=== PATIENT | female | born 1945 | race Caucasian/White ===

== ENCOUNTER → 2017-01-06 | Outpatient (CLI) | payer MEDICARE ==
[~2017-01-06] MED LIST: ADVAIR INHALER INH; AMOXICILLIN500 M2 PO; AUGMENTIN 875 M1 TAB PO; DIABETA5 MG PO; FLUCONAZOLE100 MG PO; GLYBURIDE5 MG PO; LANTUS100 U/ML SC; LISINOPRIL10 M1 PO; LISINOPRIL5 MG PO; METFORMIN500 MG PO; NEURONTIN100 MG PO; NEURONTIN300 MG PO; PROZAC40 M1 PO; ROBITUSSIN AC 110 ML PO; VICTOZA 3-PAK6 MG/ML SC; VIGAMOX 0.5% 3 M3 ML OPH; VITAMIN D5000 I3 PO; ZYRTEC10 M3 PO
== END | disposition home or self-care (01) ==
LOC: MRI 12-30 14:00
DX: M48.06 Spinal stenosis, lumbar region (principal); M47.896 Other spondylosis, lumbar region; G89.29 Other chronic pain; Z96.641 Presence of right artificial hip joint

== ENCOUNTER 2017-09-07 13:40 | Emergency (ER) | payer MEDICARE ==
[~2017-09-07] VITALS: Ht 157.4 cm; Wt 81.6 kg
--- NOTE | ~2017-09-07 | EKG ---
[place], [place] ELECTROCARDIOGRAM REPORT NAME: NIEVES MONTOYA UNIT #: [id number] ROOM: DOCTOR: ABHINAV DUFFY,CHENTE BIRTHDATE: [birth year] DOS: 09/07/2017 TIME: 1407 hours. IMPRESSION: 1. Sinus rhythm. 2. Normal QT intervals. CHENTE LA MD CM:EKGRPT:ELECTROCARDIOGRAM REPORT [id number] CHENTE LA MD
[2017-09-07 13:50] VITALS: BP 145/90
[2017-09-07 14:13] LABS: BASO # 0.1 10*3/uL (0.0-0.1); BASO % 0.9 % (0.0-1.0); EOS # 0.3 10*3/uL (0.0-0.4); EOS % 3.2 % (1.0-4.0); HEMATOCRIT 39.1 % (37.0-47.0); HEMOGLOBIN 13.6 g/dl (12.0-16.0); LYMPH # 2.6 10*3/uL (1.3-4.4); LYMPH % 28.3 % (27.0-41.0); MEAN CELL VOLUME 89.5 fl (81.0-99.0); MEAN CORPUSCULAR HGB 31.1 pg (27.0-31.0); MEAN CORPUSCULAR HGB CONC 34.8 g/dl (33.0-37.0); MEAN PLATELET VOLUME 11.5 fl (9.6-12.3); MONO # 0.8 10*3/uL (0.1-1.0); MONO % 8.9 % (3.0-9.0); NEUT # 5.4 10*3/uL (2.3-7.9); NEUT % 58.5 % (47.0-73.0); PLATELET COUNT AUTOMATED 300 10*3/uL (130-400); RED BLOOD COUNT 4.37 10*6/uL (4.10-5.10); RED CELL DISTRI WIDTH 13.1 % (0-14.5); WHITE BLOOD COUNT 9.3 10*3/uL (4.8-10.8)
[2017-09-07 14:21] LABS: ACT PARTIAL THROMBO TIME 22.8 SECONDS (20.8-31.5); INTERNATIONAL NORM RATIO 1.1 (2.0-3.5)
[2017-09-07 14:28] LABS: ALBUMIN 3.5 gm/dl (3.1-4.5); ALKALINE PHOSPHATASE 115 U/L (45-117); BUN 7 mg/dl (7-24); CHLORIDE 104 mmol/L (98-107); CREATININE 0.87 mg/dL (0.55-1.02); LIPASE 191 U/L (73-393); POTASSIUM 4.6 mmol/L (3.5-5.1); SGOT/AST 19 IU/L (3-35); SGPT/ALT 29 U/L (12-78); SODIUM 139 mmol/L (136-145)
[2017-09-07 14:29] LABS: TROPONIN I < 0.015 ng/ml (<0.045)
[2017-09-07] MEDS ORDERED: PREDNISONE10 MG PO (17:45)
== END 2017-09-07 17:54 | disposition home or self-care (01) ==
LOC: ED 13:40
PROVIDERS: Emergency Medicine
DX: G51.0 Bell's palsy (principal); Z90.49 Acquired absence of other specified parts of digestive tract; Z98.51 Tubal ligation status; Z79.4 Long term (current) use of insulin; Z79.899 Other long term (current) drug therapy

== ENCOUNTER → 2018-06-02 | Outpatient (CLI) | payer MEDICARE ==
[~2018-06-02] MED LIST changes: +PREDNISONE10 MG PO
== END | disposition home or self-care (01) ==
LOC: MRI 10:59
DX: G20 Parkinson's disease (principal)

== ENCOUNTER → 2019-08-01 | Outpatient (CLI) | payer MEDICARE | END | disposition home or self-care (01) | LOC: RAD 10:57 | DX: M85.88 Other specified disorders of bone density and structure, other site (principal); N95.0 Postmenopausal bleeding ==

== ENCOUNTER → 2019-11-15 | Outpatient (CLI) | payer MEDICARE | END | disposition home or self-care (01) | LOC: MAMMO 10:55 | DX: Z12.31 Encounter for screening mammogram for malignant neoplasm of breast (principal) ==

== ENCOUNTER → 2020-02-22 | Outpatient (CLI) | payer MEDICARE | END | disposition home or self-care (01) | LOC: US 13:30 | DX: R60.0 Localized edema (principal) ==

== ENCOUNTER → 2020-02-27 | Outpatient (CLI) | payer MEDICARE | END | disposition home or self-care (01) | LOC: RAD 11:38 | DX: M77.51 Other enthesopathy of right foot and ankle (principal) ==

== ENCOUNTER → 2020-03-04 | Outpatient (CLI) | payer MEDICARE | END | disposition home or self-care (01) | LOC: CARD 08:24 | DX: I05.9 Rheumatic mitral valve disease, unspecified (principal); E65 Localized adiposity; I35.8 Other nonrheumatic aortic valve disorders ==

== ENCOUNTER → 2021-02-26 | Outpatient (CLI) | payer MEDICARE | END | disposition home or self-care (01) | LOC: MAMMO 02-03 13:30 → RAD 02-03 14:00 | PROVIDERS: ATTEND Internal Medicine | DX: Z12.31 Encounter for screening mammogram for malignant neoplasm of breast (principal); M85.89 Other specified disorders of bone density and structure, multiple sites; Z78.0 Asymptomatic menopausal state ==

== ENCOUNTER → 2021-08-20 | Outpatient (CLI) | payer MEDICARE | END | disposition home or self-care (01) | LOC: RAD 15:48 | PROVIDERS: ATTEND General Practice | DX: M47.816 Spondylosis without myelopathy or radiculopathy, lumbar region (principal); M41.86 Other forms of scoliosis, lumbar region; M16.12 Unilateral primary osteoarthritis, left hip; M25.78 Osteophyte, vertebrae; I70.0 Atherosclerosis of aorta ==

== ENCOUNTER → 2023-02-18 | Outpatient (CLI) | payer MEDICARE | END | disposition home or self-care (01) | LOC: US 16:00 | PROVIDERS: ATTEND Internal Medicine | DX: I65.23 Occlusion and stenosis of bilateral carotid arteries (principal) ==

== ENCOUNTER → 2023-10-06 | Outpatient (CLI) | payer MEDICARE ==
[~2023-10-06] MED LIST changes: +AMOX-CLAV 875-1 EACH PO; +GABAPENTIN600 MG PO; +GLIPIZIDE10 M2 PO; +LANTUS SOL100 UNIT/1 SC; +METOPROLOL SUCC50 M1 PO; +OMEPRAZOLE MAGN20 MG PO; +REGLAN5 MG PO; +SIMVASTATIN10 MG PO; +TRADJENTA5 M1 PO; +ZESTRIL10 MG PO; +ZESTRIL5 MG PO
== END | disposition home or self-care (01) ==
LOC: RAD 10-05 01:17
PROVIDERS: ATTEND Internal Medicine Critical Care Medicine
DX: J18.8 Other pneumonia, unspecified organism (principal)

== ENCOUNTER 2023-12-21 12:24 | Emergency (ER) | payer MEDICARE ==
[~2023-12-21] VITALS: Ht 152.4 cm; Wt 71.7 kg
[2023-12-21 12:31] VITALS: BP 177/85
[2023-12-21 13:25] LABS: BASO % 0.3 % (0.0-1.0); EOS # 0.2 10*3/uL (0.0-0.4); EOS % 1.5 % (1.0-4.0); HEMATOCRIT 42.7 % (37.0-47.0); LYMPH # 1.6 10*3/uL (1.3-4.4); LYMPH % 11.3 % (27.0-41.0); MEAN CELL VOLUME 87.9 fl (81.0-99.0); MEAN CORPUSCULAR HGB CONC 34.2 g/dl (33.0-37.0); MEAN PLATELET VOLUME 11.8 fl (9.6-12.3); MONO # 1.4 10*3/uL (0.1-1.0); MONO % 9.9 % (3.0-9.0); NEUT # 11.1 10*3/uL (2.3-7.9); NEUT % 76.6 % (47.0-73.0); PLATELET COUNT AUTOMATED 268 10*3/uL (130-400); RED BLOOD COUNT 4.86 10*6/uL (4.10-5.10); RED CELL DISTRI WIDTH 13.6 % (0-14.5); WHITE BLOOD COUNT 14.5 10*3/uL (4.8-10.8)
[2023-12-21 13:36] LABS: ACT PARTIAL THROMBO TIME 26.6 SECONDS (20.0-32.1)
[2023-12-21 13:41] LABS: ALKALINE PHOSPHATASE 83 U/L (46-116); BUN 8 mg/dl (9-23); CHLORIDE 103 mmol/L (98-107); POTASSIUM 3.2 mmol/L (3.4-5.1); SGPT/ALT < 7 U/L (5-49); TOTAL PROTEIN 6.9 gm/dL (6.0-8.0)
[2023-12-21] MEDS ORDERED: MAGNESIUM OXIDE 400 MG TAB PO ONE (14:25)
[2023-12-21] MEDS ORDERED: methylPREDNISolone sod succ 125 MG VIAL IM ONE (14:25)
[2023-12-21] MEDS ORDERED: POTASSIUM CHLORIDE 20 MEQ TAB PO ONE (14:25)
[2023-12-21] MEDS ORDERED: AZITHROMYCIN 250 MG TAB PO ONE (14:25)
[2023-12-21] MEDS ORDERED: AVPAK AZITHROM250 M1 PO (14:28)
== END 2023-12-21 14:49 | disposition home or self-care (01) ==
LOC: ED 12:24
PROVIDERS: Nurse Practitioner Family
DX: J44.9 Chronic obstructive pulmonary disease, unspecified (principal); Z20.822 Contact with and (suspected) exposure to COVID-19; E87.6 Hypokalemia; E11.65 Type 2 diabetes mellitus with hyperglycemia; E83.42 Hypomagnesemia; F32.A Depression, unspecified; I10 Essential (primary) hypertension; K21.9 Gastro-esophageal reflux disease without esophagitis; E78.00 Pure hypercholesterolemia, unspecified; R10.2 Pelvic and perineal pain; Z90.49 Acquired absence of other specified parts of digestive tract; Z95.5 Presence of coronary angioplasty implant and graft; Z98.51 Tubal ligation status

== ENCOUNTER → 2024-04-18 | Outpatient (CLI) | payer MEDICARE ==
[~2024-04-18] MED LIST changes: +AVPAK AZITHROM250 M1 PO; +DHIVY 25-100 M1 EAC1 PO; +LEVOFLOXACIN500 MG PO; +Nizoral 2%15 GM T
[2024-04-18 13:33] LABS: BASO # 0.1 10*3/uL (0.0-0.1); BASO % 0.6 % (0.0-1.0); EOS # 0.4 10*3/uL (0.0-0.4); HEMATOCRIT 44.8 % (37.0-47.0); LYMPH # 2.2 10*3/uL (1.3-4.4); LYMPH % 17.6 % (27.0-41.0); MEAN CELL VOLUME 90.5 fl (81.0-99.0); MEAN CORPUSCULAR HGB 30.9 pg (27.0-31.0); MEAN CORPUSCULAR HGB CONC 34.2 g/dl (33.0-37.0); MEAN PLATELET VOLUME 11.4 fl (9.6-12.3); MONO # 1.1 10*3/uL (0.1-1.0); MONO % 9.1 % (3.0-9.0); NEUT # 8.7 10*3/uL (2.3-7.9); PLATELET COUNT AUTOMATED 258 10*3/uL (130-400); RED BLOOD COUNT 4.95 10*6/uL (4.10-5.10); RED CELL DISTRI WIDTH 13.4 % (0-14.5); WHITE BLOOD COUNT 12.6 10*3/uL (4.8-10.8)
[2024-04-18 14:10] LABS: VITAMIN D, 25-HYDROXY 32.4 ng/mL (30-100)
[2024-04-18 14:15] LABS: FREE T4 1.08 ng/dl (0.89-1.76); POTASSIUM 4.2 mmol/L (3.4-5.1); TOTAL PROTEIN 6.9 gm/dL (6.0-8.0)
== END | disposition home or self-care (01) ==
LOC: CARD 01:22 → LAB 01:22 → CARD 12:00
PROVIDERS: ATTEND Internal Medicine
DX: I08.0 Rheumatic disorders of both mitral and aortic valves (principal); I10 Essential (primary) hypertension; Z79.891 Long term (current) use of opiate analgesic; Z79.899 Other long term (current) drug therapy

== ENCOUNTER → 2024-05-31 | Outpatient (CLI) | payer MEDICARE | END | disposition home or self-care (01) | LOC: CT 00:37 | PROVIDERS: ATTEND Internal Medicine | DX: G51.8 Other disorders of facial nerve (principal); G93.89 Other specified disorders of brain ==

== ENCOUNTER → 2024-07-19 | Outpatient (CLI) | payer MEDICARE ==
[2024-07-19 15:24] LABS: POTASSIUM 4.2 mmol/L (3.4-5.1)
== END | disposition home or self-care (01) ==
LOC: US 07-14 13:00 → LAB 01:02 → US 14:00
PROVIDERS: ATTEND Internal Medicine
DX: E11.9 Type 2 diabetes mellitus without complications (principal); R42 Dizziness and giddiness

== ENCOUNTER → 2025-08-13 | Outpatient (CLI) | payer MEDICARE ==
[2025-08-13 08:29] LABS: BASO # 0.1 10*3/uL (0.0-0.1); BASO % 0.8 % (0.0-1.0); EOS # 0.5 10*3/uL (0.0-0.4); EOS % 3.6 % (1.0-4.0); MEAN CELL VOLUME 92.6 fl (81.0-99.0); MEAN CORPUSCULAR HGB 30.3 pg (27.0-31.0); MEAN PLATELET VOLUME 12.3 fl (9.6-12.3); MONO # 1.4 10*3/uL (0.1-1.0); MONO % 9.7 % (3.0-9.0); NEUT # 7.8 10*3/uL (2.3-7.9); NEUT % 53.3 % (47.0-73.0); NUCLEATED RED BLOOD CELL 0.0 % (0.0-0.0); NUCLEATED RED BLOOD CELL 0.0 10*3/uL (0.0-0.0); PLATELET COUNT AUTOMATED 329 10*3/uL (130-400); RED CELL DISTRI WIDTH 13.2 % (0-14.5)
[2025-08-13 08:50] LABS: VITAMIN D, 25-HYDROXY 30.5 ng/mL (30-100)
[2025-08-13 09:22] LABS: BUN 14 mg/dl (9-23); FREE T4 1.26 ng/dl (0.89-1.76); LDL CHOLESTEROL 64 mg/dL (9-159); SGPT/ALT < 7 U/L (5-49)
== END | disposition home or self-care (01) ==
LOC: LAB 00:32
PROVIDERS: ATTEND Internal Medicine
DX: I10 Essential (primary) hypertension (principal); E11.65 Type 2 diabetes mellitus with hyperglycemia; G20.A1 Parkinson's disease without dyskinesia, without mention of fluctuations; R53.83 Other fatigue; G25.0 Essential tremor; E11.40 Type 2 diabetes mellitus with diabetic neuropathy, unspecified; E78.2 Mixed hyperlipidemia; G64 Other disorders of peripheral nervous system; M85.9 Disorder of bone density and structure, unspecified; R26.89 Other abnormalities of gait and mobility; D51.0 Vitamin B12 deficiency anemia due to intrinsic factor deficiency; K21.00 Gastro-esophageal reflux disease with esophagitis, without bleeding; E55.9 Vitamin D deficiency, unspecified; Z13.0 Encounter for screening for diseases of the blood and blood-forming organs and certain disorders involving the immune mechanism; Z13.1 Encounter for screening for diabetes mellitus; Z13.21 Encounter for screening for nutritional disorder; Z13.220 Encounter for screening for lipoid disorders; Z13.228 Encounter for screening for other metabolic disorders; Z13.29 Encounter for screening for other suspected endocrine disorder; Z13.6 Encounter for screening for cardiovascular disorders; Z13.89 Encounter for screening for other disorder; Z13.9 Encounter for screening, unspecified

== ENCOUNTER → 2025-08-15 | Outpatient (CLI) | payer MEDICARE ==
[~2025-08-15] MED LIST changes: +IOHEXOL 350 MG/ML 100 ML VIAL IV ONE; +SODIUM CHLORIDE 0.9% 100 ML BAG IV ONE; +SODIUM CHLORIDE 0.9% 100 ML IV ONE
== END | disposition home or self-care (01) ==
LOC: CT 01:56
PROVIDERS: ATTEND Internal Medicine
DX: R94.30 Abnormal result of cardiovascular function study, unspecified (principal)

== ENCOUNTER → 2025-09-14 | Outpatient (CLI) | payer MEDICARE ==
[~2025-09-14] MED LIST changes: -IOHEXOL 350 MG/ML 100 ML VIAL IV ONE; -SODIUM CHLORIDE 0.9% 100 ML BAG IV ONE; -SODIUM CHLORIDE 0.9% 100 ML IV ONE
== END | disposition home or self-care (01) ==
LOC: ORTHO 13:13
PROVIDERS: ATTEND Orthopaedic Surgery
DX: M85.842 Other specified disorders of bone density and structure, left hand (principal); M79.642 Pain in left hand